=== PATIENT | male | born 1985 | race Caucasian/White ===

== ENCOUNTER 2016-07-01 18:06 | Emergency (ER) | payer OTHER ==
--- NOTE | 2016-07-01 19:33 | ED ORDER SUMMARY ---
..... Patient: SIMON PAULA OrderSheet [facility] VisitID: [id number] [place] [address] 31y, M Registration Date/Time: 07/01/2016 ORDER SHEET Weight: 131.5 kg (stated) Allergies: No Known Drug Allergy GENERAL ORDERS: Wound Irrigation (18:44 07/01/2016 Ashkan GarciaC) (19:15 Lexis R.N.) Splint (UE) (Left) (Metal / foam) (19:30 07/01/2016 [facility] ER Stemhole Borer And Topper verbal order read back to Ashkan Santacruz) (19:30 [facility] Stemhole Borer And Topper) MEDICATION ORDERS: Tdap IM 0.5 mL (NOW, per protocol) (18:44 07/01/2016 Ashkan Santacruz) (Ack 18:45 Oliver R.N.) (19:09 Oliver Gil.N.) IV FLUIDS: ORDER SHEET NOTES: [Electronically signed by Nidhi Fall R.N. (19:36 07/01/2016)] [Electronically signed by Connie Raza P.A.-C (19:37 07/01/2016)] [Electronically locked/signed by Nidhi Fall R.N. (19:36 07/01/2016)]
--- NOTE | 2016-07-01 19:33 | ED CLINICAL REPORT ---
Clinical Report - Physicians/Mid Levels [facility] [address] [place] [address] 07/01/2016 18:08 Patient: SIMON PAULA Time Seen: 18:55 Jul 01 2016. Arrived- By private vehicle. Historian- patient. HISTORY OF PRESENT ILLNESS Chief Complaint: Injury to the left hand. The injury happened just prior to arrival. The patient sustained a laceration. Patient is experiencing mild pain. Patient denies injury to the head. ( Patient sustained a laceration between his digits on the left side, while taken apart from a tree. Patient is right-hand dominant. Unsure of his last tetanus immunization.). REVIEW OF SYSTEMS The patient sustained a laceration. All systems otherwise negative, except as recorded above. PAST HISTORY The patient's dominant hand is the right. He has not had a prior injury to the same area. SOCIAL HISTORY Never smoker. No alcohol use. ADDITIONAL NOTES The nursing notes have been reviewed. PHYSICAL EXAM Vital Signs: 07/01/2016 18:35 BP: 137/78. HR: 83. RR: 16. O2 saturation: 94%. Temp: 98.9 F. Pain level now: 6/10. Appearance: Alert. Head: Head atraumatic. Neck: Normal inspection. CVS: Normal heart rate and rhythm. Heart sounds normal. Respiratory: No respiratory distress. Breath sounds normal. No chest wall injury. Skin: Skin warm. Extremities: Left middle finger: (at base of middle digit, into the web space to the base of 4th digit (ring finger), non gaping, full thickness 0.5 cm, full distal rom/ sensation, no bleeding). Soft tissue tenderness present. No bony tenderness. No wrist injury. Neuro, Vascular and Tendons: Vascular status intact. No pulse deficit present. Capillary refill not prolonged. Sensation intact. Motor intact. Neuro: Oriented X 3. PROGRESS AND PROCEDURES PROCEDURES (irrigation: procedure: dermabond/ steri strips). Course of Care: Fascia and they are very stable. No signs of any distal tendon or ligamentous injury. Tetanus immunization was updated. No signs of secondary infection. no fb. NO bleeding light dressing applied and slight immobilization to help with healing. Patient is stable. Symptoms better. Patient/family counseled. Disposition: Discharged. Condition: good. CLINICAL IMPRESSION Single superficial laceration. INSTRUCTIONS Elevate affected areas above chest level. Limit use of your left hand for two days. Warnings: TETANUS: You were given a tetanus shot during your visit. Make a note for future reference. OTC Medications: Take OTC medications according to label instructions. Available over the counter. Acetaminophen (available over the counter): take according to label instructions. Motrin (available over the counter): take according to label instructions. Follow-up: Follow up with your doctor as needed. (Electronically signed by Connie Raza P.A.-C 07/01/2016 19:37)
--- NOTE | 2016-07-01 19:33 | ED NURSING NOTES ---
Clinical Report - Nurses Located Within [facility] [address] [place] [address] 07/01/2016 18:08 [id number] Triage time 18:35. Acuity: LEVEL 3. Chief Complaint: INJURY TO LEFT HAND. INJURY TO THE LEFT RING FINGER and LEFT MIDDLE FINGER. Alert. No acute distress. BILL COMA SCORE: [place] Coma Scale: 15- eyes open spontaneously (4); best verbal response- oriented x 4 (5); best motor response- obeys commands (6). --18:43 Nicole Mathis R.N. 18:35 07/01/16. BP: 137/78. HR: 83. RR: 16. O2 saturation: 94% on room air. Temp: 98.9 F (oral). Pain level now: 08/21. --18:43 Nicole Mathis R.N. Weight: 131.5 kg stated. Height/Length: 108 inches Per Patient. BMI: 17.5. --18:38 Nicole Mathis R.N. Medications None. --18:37 Nicole Mathis R.N. Medication/allergy information source: the patient. --18:43 Nicole Mathis R.N. Allergies No Known Drug Allergy. --18:37 Nicole Mathis R.N. History Arrived by private vehicle. Historian: patient. Accompanied by family. Primary physician (none). This occurred just prior to arrival. He sustained a laceration (taking bark off wood). ( between the fingers). PAST MEDICAL HX: Tetanus status: more than 5 years ago. SOCIAL HX: Never smoker. No alcohol use or drug use. FALL RISK ASSESSMENT: Fall risk assessment completed. No fall risk identified. FUNCTIONAL ASSESSMENT: Functional assessment: no impairments noted. LEARNING NEEDS ASSESSMENT: The learning needs assessment revealed no barriers. --18:43 Nicole Mathis R.N. PROBLEMS: Dental Pain. Tendonitis. Gastroesophageal Reflux. Bronchitis. Sinusitis. URI. Viral Disease. --18:37 Nicole Mathis R.N. Arthritis [RuleOut]. --18:37 Nicole Mathis R.N. ADDITIONAL SURGERIES: Adenoidectomy. Tonsillectomy. --18:37 Nicole Mathis R.N. Assessment GENERAL / NEURO / PSYCH: Alert. Oriented X 4. Appears in no acute distress. Patient appears calm and cooperative. RESPIRATORY: Respirations not labored. SKIN: Skin is warm and dry. --18:43 Nicole Mathis R.N. Interventions ID band on patient. To treatment room. --18:43 Nicole Mathis R.N. PHYSICAL ASSESSMENT 19:01 07/01/16. Ambulatory to room. GENERAL / NEURO / PSYCH: Oriented X 4. Alert. Appears in no acute distress. SKIN: Skin is warm and dry. --19:01 Nicole Mathis R.N. NURSING PROGRESS NOTES 19:07/01/16. Call light placed in reach. Side rails up x 1. Bed placed in lowest position. Brakes of bed on. --19:01 Nicole Mathis R.N. 19:01 hand placed to soak. --19:02 Nicole Mathis R.N. 19:09 07/01/2016 TDAP IM 0.5 mL given. (Lot#: [id number], expiration date: 12/19/2017, Risk Control Analyst: sanofi pasteur). Given in the right deltoid. Allergies verified and confirmed 5 rights. Vaccine information statement provided to the patient. --19:09 Nicole Mathis R.N. Wound cleansed with sterile water and Hibiclens. --19:28 Ez Nam Aluminum-foam finger splint applied to right index finger and middle finger by tech. Distal pulses intact, sensation intact and motor within normal limits. --19:29 Tejas Hughes, CHAPARRITA Registered Nurse Cardi[facility]. DISPOSITION / DISCHARGE Departure time: 19:36. Condition at departure: improved. No learning barriers present. Discharge instructions provided and reviewed with the patient. Reviewed wound care instructions. Work note given. Follow up contact number with PCP. Patient verbalized understanding. Written instructions provided in [place]. No warning instructions, medication instructions, referrals given to the patient, diet instructions or activity restrictions. No stop smoking instructions. The patient was discharged by the physician advertising assistant manager. He was discharged home and accompanied by spouse. He left the Emergency Department ambulatory and via private vehicle. Spouse driving. FALL RISK ASSESSMENT: Fall risk assessment completed. No fall risk identified. --19:36 Ez Nam 19:35 07/01/16. BP: 148/75. HR: 73. RR: 16. O2 saturation: 100%. Temp: deferred. Pain level now: 0/10. --19:36 Ez Nam Locked/Released at 07/01/2016 19:36 by Ez Nam
--- NOTE | 2016-07-01 19:33 | ED CLINICAL REPORT ---
Clinical Report - Physicians/Mid Levels [facility] [address] [place] [address] 07/01/2016 18:08 Patient: SIMON PAULA Time Seen: 18:55 Jul 01 2016. Arrived- By private vehicle. Historian- patient. HISTORY OF PRESENT ILLNESS Chief Complaint: Injury to the left hand. The injury happened just prior to arrival. The patient sustained a laceration. Patient is experiencing mild pain. Patient denies injury to the head. ( Patient sustained a laceration between his digits on the left side, while taken apart from a tree. Patient is right-hand dominant. Unsure of his last tetanus immunization.). REVIEW OF SYSTEMS The patient sustained a laceration. All systems otherwise negative, except as recorded above. PAST HISTORY The patient's dominant hand is the right. He has not had a prior injury to the same area. SOCIAL HISTORY Never smoker. No alcohol use. ADDITIONAL NOTES The nursing notes have been reviewed. PHYSICAL EXAM Vital Signs: 07/01/2016 18:35 BP: 137/78. HR: 83. RR: 16. O2 saturation: 94%. Temp: 98.9 F. Pain level now: 6/10. Appearance: Alert. Head: Head atraumatic. Neck: Normal inspection. CVS: Normal heart rate and rhythm. Heart sounds normal. Respiratory: No respiratory distress. Breath sounds normal. No chest wall injury. Skin: Skin warm. Extremities: Left middle finger: (at base of middle digit, into the web space to the base of 4th digit (ring finger), non gaping, full thickness 0.5 cm, full distal rom/ sensation, no bleeding). Soft tissue tenderness present. No bony tenderness. No wrist injury. Neuro, Vascular and Tendons: Vascular status intact. No pulse deficit present. Capillary refill not prolonged. Sensation intact. Motor intact. Neuro: Oriented X 3. PROGRESS AND PROCEDURES PROCEDURES (irrigation: procedure: dermabond/ steri strips). Course of Care: Fascia and they are very stable. No signs of any distal tendon or ligamentous injury. Tetanus immunization was updated. No signs of secondary infection. no fb. NO bleeding light dressing applied and slight immobilization to help with healing. Patient is stable. Symptoms better. Patient/family counseled. Disposition: Discharged. Condition: good. CLINICAL IMPRESSION Single superficial laceration. INSTRUCTIONS Elevate affected areas above chest level. Limit use of your left hand for two days. Warnings: TETANUS: You were given a tetanus shot during your visit. Make a note for future reference. OTC Medications: Take OTC medications according to label instructions. Available over the counter. Acetaminophen (available over the counter): take according to label instructions. Motrin (available over the counter): take according to label instructions. Follow-up: Follow up with your doctor as needed. (Electronically signed by Connie Raza P.A.-C 07/01/2016 19:37)
--- NOTE | 2016-07-01 19:33 | ED NURSING NOTES ---
Clinical Report - Nurses [facility] [address] [place] [address] 07/01/2016 18:08 [id number] Triage time 18:35. Acuity: LEVEL 3. Chief Complaint: INJURY TO LEFT HAND. INJURY TO THE LEFT RING FINGER and LEFT MIDDLE FINGER. Alert. No acute distress. BILL COMA SCORE: [place] Coma Scale: 15- eyes open spontaneously (4); best verbal response- oriented x 4 (5); best motor response- obeys commands (6). --18:43 Nicole Mathis R.N. 18:35 07/01/16. BP: 137/78. HR: 83. RR: 16. O2 saturation: 94% on room air. Temp: 98.9 F (oral). Pain level now: 08/21. --18:43 Nicole Mathis R.N. Weight: 131.5 kg stated. Height/Length: 108 inches Per Patient. BMI: 17.5. --18:38 Nicole Mathis R.N. Medications None. --18:37 Nicole Mathsi R.N. Medication/allergy information source: the patient. --18:43 Nicole Mathis R.N. Allergies No Known Drug Allergy. --18:37 Nicole Mathis R.N. History Arrived by private vehicle. Historian: patient. Accompanied by family. Primary physician (none). This occurred just prior to arrival. He sustained a laceration (taking bark off wood). ( between the fingers). PAST MEDICAL HX: Tetanus status: more than 5 years ago. SOCIAL HX: Never smoker. No alcohol use or drug use. FALL RISK ASSESSMENT: Fall risk assessment completed. No fall risk identified. FUNCTIONAL ASSESSMENT: Functional assessment: no impairments noted. LEARNING NEEDS ASSESSMENT: The learning needs assessment revealed no barriers. --18:43 Nicole Mathis R.N. PROBLEMS: Dental Pain. Tendonitis. Gastroesophageal Reflux. Bronchitis. Sinusitis. URI. Viral Disease. --18:37 Nicole Mathis R.N. Arthritis [RuleOut]. --18:37 Nicole Mathis R.N. ADDITIONAL SURGERIES: Adenoidectomy. Tonsillectomy. --18:37 Nicole Mathis R.N. Assessment GENERAL / NEURO / PSYCH: Alert. Oriented X 4. Appears in no acute distress. Patient appears calm and cooperative. RESPIRATORY: Respirations not labored. SKIN: Skin is warm and dry. --18:43 Nicole Mathis R.N. Interventions ID band on patient. To treatment room. --18:43 Nicole Mathis R.N. PHYSICAL ASSESSMENT 19:01 07/01/16. Ambulatory to room. GENERAL / NEURO / PSYCH: Oriented X 4. Alert. Appears in no acute distress. SKIN: Skin is warm and dry. --19:01 Nicole Mathis R.N. NURSING PROGRESS NOTES 19:07/01/16. Call light placed in reach. Side rails up x 1. Bed placed in lowest position. Brakes of bed on. --19:01 Nicole Mathis R.N. 19:01 hand placed to soak. --19:02 Nicole Mathis R.N. 19:09 07/01/2016 TDAP IM 0.5 mL given. (Lot#: [id number], expiration date: 12/19/2017, Chain Saw Mechanic: sanofi pasteur). Given in the right deltoid. Allergies verified and confirmed 5 rights. Vaccine information statement provided to the patient. --19:09 Nicole Mathis R.N. Wound cleansed with sterile water and Hibiclens. --19:28 Ez Nam Aluminum-foam finger splint applied to right index finger and middle finger by tech. Distal pulses intact, sensation intact and motor within normal limits. --19:29 Tejas Hughes, CHAPARRITA Right Of Way Cutter. DISPOSITION / DISCHARGE Departure time: 19:36. Condition at departure: improved. No learning barriers present. Discharge instructions provided and reviewed with the patient. Reviewed wound care instructions. Work note given. Follow up contact number with PCP. Patient verbalized understanding. Written instructions provided in [place]. No warning instructions, medication instructions, referrals given to the patient, diet instructions or activity restrictions. No stop smoking instructions. The patient was discharged by the physician assistant unit forester. He was discharged home and accompanied by spouse. He left the Emergency Department ambulatory and via private vehicle. Spouse driving. FALL RISK ASSESSMENT: Fall risk assessment completed. No fall risk identified. --19:36 Ez Nam 19:35 07/01/16. BP: 148/75. HR: 73. RR: 16. O2 saturation: 100%. Temp: deferred. Pain level now: 0/10. --19:36 Ez Nam Locked/Released at 07/01/2016 19:36 by Ez Nam
--- NOTE | 2016-07-01 19:33 | ED ORDER SUMMARY ---
..... Patient: SIMON PAULA OrderSheet [facility] VisitID: [id number] [place] [address] 31y, M Registration Date/Time: 07/01/2016 ORDER SHEET Weight: 131.5 kg (stated) Allergies: No Known Drug Allergy GENERAL ORDERS: Wound Irrigation (18:44 07/01/2016 Ashkan GarciaC) (19:15 Lexis R.N.) Splint (UE) (Left) (Metal / foam) (19:30 07/01/2016 [employer] [facility] Bowling Alley Manager verbal order read back to Ashkan Santacruz) (19:30 Netasq ER Bowling Alley Manager) MEDICATION ORDERS: Tdap IM 0.5 mL (NOW, per protocol) (18:44 07/01/2016 Ashkan Santacruz) (Ack 18:45 Oliver R.N.) (19:09 Oliver Gil.N.) IV FLUIDS: ORDER SHEET NOTES: [Electronically signed by Nidhi Fall R.N. (19:36 07/01/2016)] [Electronically signed by Connie Raza P.A.-C (19:37 07/01/2016)] [Electronically locked/signed by Nidhi Fall R.N. (19:36 07/01/2016)]
--- NOTE | 2016-07-01 19:37 | ED DISCHARGE INSTRUCTIONS ---
Patient: SIMON PAULA General Instructions [facility] VisitID: [id number] [place] [address] 31y, M Registration Date/Time: 07/01/2016 Single superficial laceration. INSTRUCTIONS Elevate affected areas above chest level. Limit use of your left hand for two days. Warnings: TETANUS: You were given a tetanus shot during your visit. Make a note for future reference. OTC Medications: Take OTC medications according to label instructions. Available over the counter. Acetaminophen (available over the counter): take according to label instructions. Motrin (available over the counter): take according to label instructions. Follow-up: Follow up with your doctor as needed. ADDITIONAL INFORMATION Laceration(Skin Glue) A laceration is a cut through the skin. You have a laceration that has been closed with a type of skin glue. Home Care Medications: Acetaminophen (Tylenol) or ibuprofen (Motrin, Advil) may be taken for pain, unless another pain medicine was prescribed. NOTE: If you have chronic liver or kidney disease or ever had a stomach ulcer or GI bleeding, talk with your doctor before using these medications. General Care: Keep the wound clean and dry. You may shower or bathe as usual, but do not use soaps, lotions, or ointments on the wound area. Do not scrub the wound. After bathing, pat the wound dry with a soft towel. If a bandage was applied and it becomes wet or dirty, replace it. Otherwise, change the bandage every 24 hours. Do not scratch, rub, or pick at the film. Do not place tape directly over the film. Do not apply liquids (such as peroxide), ointments, or creams to the wound while the film is in place. Most skin wounds heal without problems. However, an infection sometimes occurs despite proper treatment. Therefore, watch for the signs of infection listed below. Follow Up as directed by the doctor or our staff. The skin glue film will fall off naturally in 5 to 10 days. Get Prompt Medical Attention if any of the following occur: Signs of infection: Fever of 100.4F (38C) or higher, or as directed by your healthcare provider Increasing pain in the wound Increasing redness or swelling Pus coming from the wound Wound bleeds more than a small amount or bleeding doesnt stop Wound edges come apart You feel numbness or weakness in the wound area that doesnt go away Diphtheria Toxoid Adsorbed, Pertussis Vaccine, Acellular (Adsorbed), Tetanus Toxoid, Adsorbed Suspension for injection What is this medicine? DIPHTHERIA and TETANUS TOXOIDS; PERTUSSIS VACCINE (dif THEER ee uh and TET n us TOK soids; per TUS iss vak SEEN) is used to prevent diphtheria, tetanus, and pertussis infections. How should I use this medicine? This vaccine is for injection into a muscle. It is given by a health hospice spiritual care coordinator. A copy of Vaccine Information Statements will be given before each vaccination. Read this sheet carefully each time. The sheet may change frequently. Talk to your commodities broker regarding the use of this vaccine in children. While the DTP vaccine may be given to children ages 6 weeks to 7 years and the Tdap vaccine may be given to children at least 10 years old, precautions do apply. What side effects may I notice from receiving this medicine? Side effects that you should report to your doctor or health hospice spiritual care coordinator as soon as possible: allergic reactions like skin rash, itching or hives, swelling of the face, lips, or tongue breathing problems fever of 103 degrees F or more flu-like symptoms inconsolable crying infection pain, tingling, numbness in the hands or feet seizures swelling of arm or leg that was injected unusually weak or tired Side effects that usually do not require immediate medical attention (report these side effects to your doctor or health hospice spiritual care coordinator if they continue or are bothersome): fussy, irritable loss of appetite fever of 102 degrees F or less pain, tenderness, redness, swelling, or a 'knot' at site where injected vomiting What may interact with this medicine? immune globulin medicines that suppress your immune function like adalimumab, anakinra, infliximab medicines to treat cancer medicines that treat or prevent blood clots like warfarin, enoxaparin, and dalteparin steroid medicines like prednisone or cortisone What if I miss a dose? It is important not to miss your dose. Call your doctor or health hospice spiritual care coordinator if you are unable to keep an appointment. Where should I keep my medicine? This drug is given in a hospital or clinic and will not be stored at home. What should I tell my health care provider before I take this medicine? They need to know if you have any of these conditions: blood disorders like hemophilia fever or infection immune system problems neurologic disease seizures an unusual or allergic reaction to vaccines, thimerosal, latex, other medicines, foods, dyes, or preservatives or trying to get breast-feeding What should I watch for while using this medicine? See your health care provider for all shots of this vaccine as directed. To have protection from infection, you must have 3 shots of this vaccine plus boosters as needed. Tell your doctor right away if you have any serious or unusual side effects after getting this vaccine. You have been given the following additional information: Laceration, Extremity (Skin Glue) Diphtheria Toxoid Adsorbed, Pertussis Vaccine, Acellular (Adsorbed), Tetanus Toxoid, Adsorbed Suspension for injection Limit use of your left hand for two days. (Electronically signed by Connie Raza P.A.-C 07/01/2016 19:37)
--- NOTE | 2016-07-01 19:37 | ED DISCHARGE INSTRUCTIONS ---
Patient: SIMON PAULA General Instructions [facility] VisitID: [id number] [place] [address] 31y, M Registration Date/Time: 07/01/2016 Single superficial laceration. INSTRUCTIONS Elevate affected areas above chest level. Limit use of your left hand for two days. Warnings: TETANUS: You were given a tetanus shot during your visit. Make a note for future reference. OTC Medications: Take OTC medications according to label instructions. Available over the counter. Acetaminophen (available over the counter): take according to label instructions. Motrin (available over the counter): take according to label instructions. Follow-up: Follow up with your doctor as needed. ADDITIONAL INFORMATION Laceration(Skin Glue) A laceration is a cut through the skin. You have a laceration that has been closed with a type of skin glue. Home Care Medications: Acetaminophen (Tylenol) or ibuprofen (Motrin, Advil) may be taken for pain, unless another pain medicine was prescribed. NOTE: If you have chronic liver or kidney disease or ever had a stomach ulcer or GI bleeding, talk with your doctor before using these medications. General Care: Keep the wound clean and dry. You may shower or bathe as usual, but do not use soaps, lotions, or ointments on the wound area. Do not scrub the wound. After bathing, pat the wound dry with a soft towel. If a bandage was applied and it becomes wet or dirty, replace it. Otherwise, change the bandage every 24 hours. Do not scratch, rub, or pick at the film. Do not place tape directly over the film. Do not apply liquids (such as peroxide), ointments, or creams to the wound while the film is in place. Most skin wounds heal without problems. However, an infection sometimes occurs despite proper treatment. Therefore, watch for the signs of infection listed below. Follow Up as directed by the doctor or our staff. The skin glue film will fall off naturally in 5 to 10 days. Get Prompt Medical Attention if any of the following occur: Signs of infection: Fever of 100.4F (38C) or higher, or as directed by your healthcare provider Increasing pain in the wound Increasing redness or swelling Pus coming from the wound Wound bleeds more than a small amount or bleeding doesnt stop Wound edges come apart You feel numbness or weakness in the wound area that doesnt go away Diphtheria Toxoid Adsorbed, Pertussis Vaccine, Acellular (Adsorbed), Tetanus Toxoid, Adsorbed Suspension for injection What is this medicine? DIPHTHERIA and TETANUS TOXOIDS; PERTUSSIS VACCINE (dif THEER ee uh and TET n us TOK soids; per TUS iss vak SEEN) is used to prevent diphtheria, tetanus, and pertussis infections. How should I use this medicine? This vaccine is for injection into a muscle. It is given by a health vehicle care specialist. A copy of Vaccine Information Statements will be given before each vaccination. Read this sheet carefully each time. The sheet may change frequently. Talk to your machine washer regarding the use of this vaccine in children. While the DTP vaccine may be given to children ages 6 weeks to 7 years and the Tdap vaccine may be given to children at least 10 years old, precautions do apply. What side effects may I notice from receiving this medicine? Side effects that you should report to your doctor or health vehicle care specialist as soon as possible: allergic reactions like skin rash, itching or hives, swelling of the face, lips, or tongue breathing problems fever of 103 degrees F or more flu-like symptoms inconsolable crying infection pain, tingling, numbness in the hands or feet seizures swelling of arm or leg that was injected unusually weak or tired Side effects that usually do not require immediate medical attention (report these side effects to your doctor or health vehicle care specialist if they continue or are bothersome): fussy, irritable loss of appetite fever of 102 degrees F or less pain, tenderness, redness, swelling, or a 'knot' at site where injected vomiting What may interact with this medicine? immune globulin medicines that suppress your immune function like adalimumab, anakinra, infliximab medicines to treat cancer medicines that treat or prevent blood clots like warfarin, enoxaparin, and dalteparin steroid medicines like prednisone or cortisone What if I miss a dose? It is important not to miss your dose. Call your doctor or health vehicle care specialist if you are unable to keep an appointment. Where should I keep my medicine? This drug is given in a hospital or clinic and will not be stored at home. What should I tell my health care provider before I take this medicine? They need to know if you have any of these conditions: blood disorders like hemophilia fever or infection immune system problems neurologic disease seizures an unusual or allergic reaction to vaccines, thimerosal, latex, other medicines, foods, dyes, or preservatives or trying to get breast-feeding What should I watch for while using this medicine? See your health care provider for all shots of this vaccine as directed. To have protection from infection, you must have 3 shots of this vaccine plus boosters as needed. Tell your doctor right away if you have any serious or unusual side effects after getting this vaccine. You have been given the following additional information: Laceration, Extremity (Skin Glue) Diphtheria Toxoid Adsorbed, Pertussis Vaccine, Acellular (Adsorbed), Tetanus Toxoid, Adsorbed Suspension for injection Limit use of your left hand for two days. (Electronically signed by Connie Raza P.A.-C 07/01/2016 19:37)
--- NOTE | 2016-07-01 19:38 | ED MAR SUMMARY ---
..... Medication Administration Record [facility] [address] [place] [place] [address] Patient: SIMON PAULA Visit ID: [id number] 31y, M Weight: 131.5 kg Height/Length: 108 in BMI: 17.5 ALLERGIES: No Known Drug Allergy Given 19:09 07/01/2016 Nicole Mathis RSarthak Medication Administered: TDAP [IM], Dose: 0.5 mL IM. Medication Ordered: Tdap IM 0.5 mL (NOW, per protocol).
--- NOTE | 2016-07-01 19:38 | ED MED RECONCILIATION SUMMARY ---
Patient: SIMON PAULA Medication Reconciliation Report [facility] VisitID: [id number] [address] [place] [address] 31y, M Registration Date/Time: 07/01/2016 Weight: 131.5 kg Height/Length: 108 in. BMI: 17.5 ALLERGIES: No Known Drug Allergy The patient's Home Medications are listed below: NONE. The source(s) of the original Home Medication information: patient The following Medications were given to the patient in the Emergency Department: TDAP [IM] IM 0.5 mL, administered: 07/01/2016 7:09:00 PM The following Medications were prescribed to the patient: Take OTC medications according to label instructions. Available over the counter. -- Connie Raza, P.A.-C Acetaminophen (available over the counter): take according to label instructions. -- Connie Raza, P.A.-C Motrin (available over the counter): take according to label instructions. -- Connie Raza, P.A.-C
--- NOTE | 2016-07-01 19:38 | ED MED RECONCILIATION SUMMARY ---
Patient: SIMON PAULA Medication Reconciliation Report [facility] VisitID: [id number] [address] [place] [address] 31y, M Registration Date/Time: 07/01/2016 Weight: 131.5 kg Height/Length: 108 in. BMI: 17.5 ALLERGIES: No Known Drug Allergy The patient's Home Medications are listed below: NONE. The source(s) of the original Home Medication information: patient The following Medications were given to the patient in the Emergency Department: TDAP [IM] IM 0.5 mL, administered: 07/01/2016 7:09:00 PM The following Medications were prescribed to the patient: Take OTC medications according to label instructions. Available over the counter. -- Connie Raza, P.A.-C Acetaminophen (available over the counter): take according to label instructions. -- Connie Raza, P.A.-C Motrin (available over the counter): take according to label instructions. -- Connie Raza, P.A.-C
--- NOTE | 2016-07-01 19:38 | ED MAR SUMMARY ---
..... Medication Administration Record [facility] [address] [place] [address] Patient: SIMON PAULA Visit ID: [id number] 31y, M Weight: 131.5 kg Height/Length: 108 in BMI: 17.5 ALLERGIES: No Known Drug Allergy Given 19:09 07/01/2016 Nicole Mathis RSarthak Medication Administered: TDAP [IM], Dose: 0.5 mL IM. Medication Ordered: Tdap IM 0.5 mL (NOW, per protocol).
== END 2016-07-01 19:36 | disposition home or self-care (01) ==
LOC: ED SRH 18:06
DX: S61.412A Laceration without foreign body of left hand, initial encounter (principal); X58.XXXA Exposure to other specified factors, initial encounter; Y99.9 Unspecified external cause status; Y92.9 Unspecified place or not applicable; Y93.H9 Activity, other involving exterior property and land maintenance, building and construction; Z23 Encounter for immunization
CPT/HCPCS: 82708